=== PATIENT | female | born 1980 | race African-American/Black ===

== ENCOUNTER 2017-12-25 20:03 | Emergency (ER) | payer MEDICAID ==
[~2017-12-25] VITALS: Ht 175.3 cm; Wt 68.0 kg
[2017-12-25 20:08] VITALS: BP 144/82
[2017-12-25 20:13] VITALS: BP 144/82
--- NOTE | 2017-12-25 20:13 | NUR ---
TO BED # 1 AMBULATORY , REPORT GIVEN TO CAROLINE ARELLANO.
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
--- NOTE | 2017-12-25 20:19 | NUR ---
REPORTED TO ALEAH PABON AND SPOKEN TO DUSTY, AND ADVISED THE PATIENT TO CALL [facility] OFFICE ONCE SHES DISCHARGE.
[2017-12-25 21:50] LABS: BASOPHILS # (AUTO) 0.1 K/uL (0.00-0.22); BASOPHILS % (AUTO) 0.8 % (0.0-2.0); EOSINOPHILS # (AUTO) 0.1 K/uL (0-0.4); EOSINOPHILS % (AUTO) 1.7 % (0.0-4.0); HEMATOCRIT 38.4 % (36-48); LYMPHOCYTES # (AUTO) 1.6 K/uL (2.5-16.5); LYMPHOCYTES % (AUTO) 23.9 % (20.5-51.1); MEAN CORPUSCULAR HEMOGLOBIN 31 pg (27-31); MEAN CORPUSCULAR HGB CONC 34 g/dL (33-37); MEAN CORPUSCULAR VOLUME 91.7 fL (80-94); MONOCYTES # (AUTO) 0.4 K/uL (0.8-1.0); MONOCYTES % (AUTO) 5.8 % (1.7-9.3); NEUTROPHILS # (AUTO) 4.6 K/uL (1.8-7.7); NEUTROPHILS % (AUTO) 67.8 % (42.2-75.2); PLATELET COUNT (AUTO) 222 K/uL (140-450); RED BLOOD CELL COUNT(AUTO) 4.19 MIL/uL (4.20-5.40); RED CELL DISTRIBUTION WIDTH 13.7 % (11.6-13.7); WHITE BLOOD COUNT (AUTO) 6.7 K/uL (4.8-10.8)
[2017-12-25 22:06] LABS: ANION GAP 15.3 (8-16); CARBON DIOXIDE 26.5 mmol/L (21-32); CREATININE 0.9 mg/dL (0.6-1.3); POTASSIUM 3.8 mmol/L (3.5-5.1)
[2017-12-25 22:13] LABS: PROTHROMBIN TIME 10.7 secs (10.8-13.4)
[2017-12-25 22:14] LABS: ALBUMIN 3.7 g/dL (3.4-5.0); TOTAL BILIRUBIN 0.6 mg/dL (0.0-1.0)
--- NOTE | 2017-12-25 22:29 | NUR ---
PATIENT ELOPED FROM FACILITY. DISCHARGE INSTRUCTIONS NOT GIVEN TO PATIENT. DR. RAMOS NOTIFIED.
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
== END 2017-12-25 22:29 | disposition left against medical advice (07) ==
LOC: MED 20:03
DX: S00.83XA Contusion of other part of head, initial encounter (principal); R55 Syncope and collapse; Y04.0XXA Assault by unarmed brawl or fight, initial encounter; Y93.89 Activity, other specified; Y99.8 Other external cause status; Y92.89 Other specified places as the place of occurrence of the external cause
CPT/HCPCS: 36415; 70450; 70486; 71045; 72125; 80053; 81002; 81025; 84484; 85025; 85610; 85730; 93005; 99285